=== PATIENT | female | born 1950 | race American Indian/Alaskan Native ===

== ENCOUNTER 2020-11-01 22:26 | Emergency (ER) | payer MEDICAID ==
[2020-11-01 22:56] VITALS: BP 166/84
--- NOTE | 2020-11-02 00:20 | XRay Report ---
LEFT HIP 2 VIEWS 2331 INDICATION: fall injury - pain COMPARISON: None available. FINDINGS: No fractures or dislocation are seen. Minimal bilateral hip degenerative changes are noted. Signer Name: Balaji Phillips MD Signed: 11/02/2020 12:15 AM Workstation Name: [id number]
--- NOTE | 2020-11-02 00:40 | Cat Scan Report ---
CT HEAD WITHOUT CONTRAST INDICATION: fall injury - pain TECHNIQUE: All CT scans at this location are performed using CT dose reduction for ALARA by means of automated exposure control. COMPARISON: None available. FINDINGS: BRAIN: No hemorrhage or mass effect are seen. No evidence of acute infarction is noted. Mild white ma tter microvascular type changes are seen. ORBITS: See below SOFT TISSUES OF HEAD: Normal. CALVARIUM: Normal. VISUALIZED PARANASAL SINUSES AND MASTOID AIR CELLS: See below ADDITIONAL FINDINGS: None. CT FACE HISTORY: fall injury - pain COMPARISON: None. TECHNIQUE: Axial images of the face were obtained. Coronal reformats were generated. All CT scans at this location are performed using CT dose reduction for ALARA by means of automated exposure control . CONTRAST: None. FINDINGS: Facial soft tissues: No significant abnormalities. 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 There appear to be sclerotic borders. H owever, just anterior to this and the zygomatic arch an acute fracture line is seen with slight infer ior depression of the more posterior portion and slight depression of the arch as a whole. The latera l wall of the left maxillary sinus shows a moderately depressed fracture. Depression by approximately 5 mm is seen. Paranasal sinuses: Density/thickening is seen inferiorly and posteriorly in the left maxillary sinus without an air-fluid level. Other sinuses appear clear. Orbits: No significant abnormality. Visualized images of the intracranial space: No significant abnormality. Additional findings: None. CT CERVICAL SPINE WITHOUT CONTRAST INDICATION: fall injury - pain TECHNIQUE: All CT scans at this location are performed using CT dose reduction for ALARA by means of automated exposure control. Axial CT images were obtained through the cervical spine. Sagittal and co winter reformatted images were produced. COMPARISON: None available. Cervical spine findings: Moderate degenerative changes are seen. Moderate disc space narrowing is not ed at C5-C6 with mild narrowing at C3-4 and C4-5. Slight retrolisthesis is noted at C5-6 related to t he degenerative change. No fractures are noted. Disc bulging is seen at C5-6 and C6-7. C1 to moderate arthritic changes are seen. A sclerotic area is noted in the right aspect of the C4 vertebral body e xtending slightly into the right pedicle. No other similar sclerotic foci are seen. No fractures are noted. Additional findings: A 6 cm mixed density mass of the left lobe of the thyroid is seen with slight mix bsternal extension. Right lobe shows a 2.3 cm mass. Scarring is seen in the right apex. IMPRESSION: 1. No significant acute intracranial abnormality is seen 2. Acute fractures of the left zygomatic arch and lateral wall of the left maxillary sinus 3. No acute abnormalities are seen in the cervical spine 4. Moderate cervical degenerative changes 5. Small sclerotic indeterminate focus in the C4 vertebral body. Follow-up is suggested. 6. Prominent thyroid abnormalities as above. Follow-up in a nonurgent setting with ultrasound and cli nical evaluation is suggested if these are not known findings. INCIDENTAL THYROID NODULE RECOMMENDATIONS Nonpalpable nodules detected on US or other anatomic imaging studies are termed incidentally discover ed nodules or incidentalomas. Nonpalpable nodules have the same risk of malignancy as palpable nodule s with the same size. Generally, only nodules >1 cm should be evaluated, since they have a greater po tential to be clinically significant cancers. (JESSICA, 2009). Follow up for incidental thyroid nodules <1 cm is not recommended. In patients <35 years with an incidental thyroid nodule detected on CT, MRI, or extrathyroidal ultras ound, dedicated thyroid ultrasound is recommended if the nodule is 1 cm, has no suspicious imaging fe atures, and if the patient has normal life expectancy. In patients 35 years with an incidental thyroid nodule detected on CT, MRI, or extrathyroidal ultraso und, dedicated thyroid ultrasound is recommended if the nodule is 1.5 cm, has no suspicious imaging f eatures, and if the patient has normal life expectancy. Signer Name: Balaji Phillips MD Signed: 11/02/2020 12:35 AM Workstation Name: [id number]
--- NOTE | 2020-11-02 01:20 | Emergency Department Report ---
ED Fall HPI - General Chief Complaint: Fall Stated Complaint: FALL; NOSE BLEED Source: patient Mode of arrival: Ambulatory - History of Present Illness Initial Comments: Patient is a 70-year-old -[place] female with a history of hypertension and ubo-ngpayyq-fijggeicc diabetes who presents to the ED with complaint of acute onset persistent headache, left zygomatic pain and swelling, nosebleed, n dipti pain and left hip pain after she tripped on her porch and fell down, landing on her face with brief loss of consciousness. Patient states that when she got up she realized that she had nosebleed which has since resolved. Patient states that she initially did not want to come to the ED for evaluation but at the insistence of her family she decided to come to the ED for evaluation because of worsening left zygomatic pain. Patient denies dizziness, syncope, seizures, chest pain, shortness of breath, back pain, numbness and tingling or weakness of upper and lower extremities bilaterally, change in vision, dental injuries, nausea and vomiting or abdominal pain. MD Complaint: fall, other (Facial pain, neck pain and head injury; left hip pain) -: Sudden, hour(s) (6) Fall From: standing, other (Slipped and fell off pouch) When Fall Occurred: 4-6 hours [employer] Fall Witnessed: yes, by family Place Fall Occurred: home Loss of Consciousness: none Prolonged Down Time?: no Symptoms Prior to Fall: none Location: head, face, neck, pelvis (left hip) Location - Extremities: Left: Leg (left hip pain) Severity: severe Severity scale (0 -10): 7 Quality: sharp, aching Context: tripped/slipped Associated Symptoms: headache, neck pain. denies: numbness, weakness, chest paint, shortness of breath, abdominal pain, hematuria, unable to walk, lightheaded, vertigo, confusion, other - Related Data Previous Rx's Medication Instructions Recorded Last Taken Type Clindamycin [Clindamycin CAP] 300 mg PO Q8HR #60 capsule 11/02/20 Unknown Rx Ibuprofen [Motrin] 600 mg PO Q8H PRN #30 tablet 11/02/20 Unknown Rx Allergies Allergy/AdvReac Type Severity Reaction Status Date / Time codeine Allergy Unknown Verified 11/02/20 01:51 Penicillins Allergy Unknown Verified 11/02/20 01:51 ED Review of Systems ROS: Stated complaint: FALL; NOSE BLEED Other details as noted in HPI Constitutional: denies: chills, fever Eyes: denies: eye pain, eye discharge, vision change ENT: other (nasal bone and left zygomatic pain). denies: ear pain, throat pain Respiratory: denies: cough, shortness of breath, wheezing Cardiovascular: denies: chest pain, palpitations Endocrine: no symptoms reported Gastrointestinal: denies: abdominal pain, nausea, diarrhea Genitourinary: denies: urgency, dysuria, discharge Musculoskeletal: arthralgia (left hip pain), other (neck pain). denies: back pain, joint swelling Skin: denies: rash, lesions Neurological: denies: headache, weakness, paresthesias Psychiatric: denies: anxiety, depression Hematological/Lymphatic: denies: easy bleeding, easy bruising ED Past Medical Hx - Past Medical History Previous Medical History?: Yes Hx Hypertension: Yes Hx Diabetes: Yes (borderline) - Surgical History Past Surgical History?: Yes Additional Surgical History: hysterectomy - Medications Home Medications: Home Medications Medication Instructions Recorded Confirmed Last Taken Type Clindamycin [Clindamycin CAP] 300 mg PO Q8HR #60 capsule 11/02/20 Unknown Rx Ibuprofen [Motrin] 600 mg PO Q8H PRN #30 tablet 11/02/20 Unknown Rx ED Physical Exam - General Limitations: No Limitations General appearance: alert, in no apparent distress - Head Head exam: Present: other (Palpable left zygomatic and nasaoseptal tenderness) - Eye Eye exam: Present: normal appearance, PERRL, EOMI Pupils: Present: normal accommodation - ENT ENT exam: Present: mucous membranes moist, TM's normal bilaterally, normal external ear exam, other (Palpable nasaoseptal and zygomatic tenderness) - Neck Neck exam: Present: normal inspection, tenderness (Palpable cervical paraspinal musculoskeletal tenderness), full ROM - Respiratory Respiratory exam: Present: normal lung sounds bilaterally. Absent: respiratory distress, wheezes, rales, rhonchi, chest wall tenderness, accessory muscle use, decreased breath sounds, prolonged expiratory - Cardiovascular Cardiovascular Exam: Present: regular rate, normal rhythm, normal heart sounds. Absent: systolic murmur, diastolic murmur, rubs, gallop - GI/Abdominal GI/Abdominal exam: Present: soft, normal bowel sounds. Absent: distended, tenderness, guarding, hyperactive bowel sounds - Extremities Exam Extremities exam: Present: normal inspection, full ROM, tenderness (Palpable left hip tenderness), normal capillary refill - Back Exam Back exam: Present: normal inspection, full ROM. Absent: tenderness, CVA tenderness (R), CVA tenderness (L), muscle spasm, paraspinal tenderness - Neurological Exam Neurological exam: Present: alert, oriented X3, CN II-XII intact, normal gait, reflexes normal - Psychiatric Psychiatric exam: Present: normal affect, normal mood - Skin Skin exam: Present: warm, dry, intact, normal color. Absent: rash ED Course Vital Signs 11/01/20 11/02/20 22:52 02:01 Temperature 98.3 F Pulse Rate 84 Respiratory 18 16 Rate Blood Pressure 166/84 O2 Sat by Pulse 97 Oximetry - Reevaluation(s) Reevaluation #1: 11/02/20 03:28 I paged and discussed the patient's case with the plastic surgeon on-call at [facility] Dr. Ta who advised that the patient is stable to follow-up with the facial plastic surgery clinic in the next 2 to [address] Ta advised that the patient may call the clinic at [phone] to schedule a follow-up appointment with the clinic. ED Medical Decision Making - Radiology Data Radiology results: report reviewed, image reviewed [address] [address] XRay Report Signed Patient: ZEN JOHNSON MR#: [id number] : 1950 Acct:[id number] Age/Sex: 70 / F ADM Date: 11/01/20 Loc: ED Attending Dr: Ordering Physician: NANY FREEMAN Date of Service: 11/01/20 Procedure(s): XR hip 2-3V LT Accession Number(s): [id number] cc: NANY FREEMAN Fluoro Time In Minutes: LEFT HIP 2 VIEWS 2332 INDICATION: fall injury - pain COMPARISON: None available. FINDINGS: No fractures or dislocation are seen. Minimal bilateral hip degen erative changes are noted. Signer Name: Balaji Phillips MD Signed: 11/02/2020 12:15 AM Workstation Name: [id number] Transcribed By: REJI Dictated By: Balaji Phillips MD Electronically Authenticated By: Balaji Phillips MD Signed Date/Time: 11/02/2014 DD/ TD/TT: Print [facility] [address] [place] [address] Cat Scan Report Signed Patient: ZEN JOHNSON MR#: [id number] : 1950 Acct:[id number] Age/Sex: 70 / F ADM Date: 11/01/20 Loc: ED Attending Dr: Ordering Physician: NANY FREEMAN Date of Service: 11/01/20 Procedure(s): CT head/brain wo con Accession Number(s): [id number] cc: NANY FREEMAN CT HEAD WITHOUT CONTRAST INDICATION: fall injury - pain TECHNIQUE: All CT scans at this location are performed using CT dose reduction for ALARA by means of automated exposure control. COMPARISON: None available. FINDINGS: BRAIN: No hemorrhage or mass effect are seen. No evidence of acute infarction is noted. Mild white matter microvascular type changes are seen. ORBITS: See below SOFT TISSUES OF HEAD: Normal. CALVARIUM: Normal. VISUALIZED PARANASAL SINUSES AND MASTOID AIR CELLS: See below ADDITIONAL FINDINGS: None. CT FACE HISTORY: fall injury - pain COMPARISON: None. TECHNIQUE: Axial images of the face were obtained. Coronal reformats were generated. All CT scans at this location are performed using CT dose reduction for ALARA by means of automated exposure control. CONTRAST: None. FINDINGS: Facial soft tissues: No significant abnormalities. 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 There appear to be sclerotic borders. However, just anterior to this and the zygomatic arch an acute fracture line is seen with slight inferior depression of the more posterior portion and slight depression of the arch as a whole. The lateral wall of the left maxillary sinus shows a moderately depressed fracture. Depression by approximately 5 mm is seen. Paranasal sinuses: Density/thickening is seen inferiorly and posteriorly in the left maxillary sinus without an air-fluid level. Other sinuses appear clear. Orbits: No significant abnormality. Visualized images of the intracranial space: No significant abnormality. Additional findings: None. CT CERVICAL SPINE WITHOUT CONTRAST INDICATION: fall injury - pain TECHNIQUE: All CT scans at this location are performed using CT dose reduction for ALARA by means of automated exposure control. Axial CT images were obtained through the cervical spine. Sagittal and coronal reformatted images were produced. COMPARISON: None available. Cervical spine findings: Moderate degenerative changes are seen. Moderate disc space narrowing is noted at C5-C6 with mild narrowing at C3-4 and C4-5. Slight retrolisthesis is noted at C5-6 related to the degenerative change. No fractures are noted. Disc bulging is seen at C5-6 and C6-7. C1 to moderate arthritic changes are seen. A sclerotic area is noted in the right aspect of the C4 vertebral body extending slightly into the right pedicle. No other similar sclerotic foci are seen. No fractures are noted. Additional findings: A 6 cm mixed density mass of the left lobe of the thyroid is seen with slight substernal extension. Right lobe shows a 2.3 cm mass. Scarring is seen in the right apex. IMPRESSION: 1. No significant acute intracranial abnormality is seen 2. Acute fractures of the left zygomatic arch and lateral wall of the left maxillary sinus 3. No acute abnormalities are seen in the cervical spine 4. Moderate cervical degenerative changes 5. Small sclerotic indeterminate focus in the C4 vertebral body. Follow-up is suggested. 6. Prominent thyroid abnormalities as above. Follow-up in a nonurgent setting with ultrasound and clinical evaluation is suggested if these are not known findings. INCIDENTAL THYROID NODULE RECOMMENDATIONS Nonpalpable nodules detected on US or other anatomic imaging studies are termed incidentally discovered nodules or incidentalomas. Nonpalpable nodules have the same risk of malignancy as palpable nodules with the same size. Generally, only nodules >1 cm should be evaluated, since they have a greater potential to be clinically significant cancers. (JESSICA, 2009). Follow up for incidental thyroid nodules <1 cm is not recommended. In patients <35 years with an incidental thyroid nodule detected on CT, MRI, or extrathyroidal ultrasound, dedicated thyroid ultrasound is recommended if the nodule is 1 cm, has no suspicious imaging features, and if the patient has normal life expectancy. In patients 35 years with an incidental thyroid nodule detected on CT, MRI, or extrathyroidal ultrasound, dedicated thyroid ultrasound is recommended if the nodule is 1.5 cm, has no suspicious imaging features, and if the patient has normal life expectancy. Signer Name: Balaji Phillips MD Signed: 11/02/2020 12:35 AM Workstation Name: [id number] Transcribed By: REJI Dictated By: Balaji Phillips MD Electronically Authenticated By: Balaji Phillips MD Signed Date/Time: 11/02/2034 DD/ TD/TT: - Medical Decision Making This is a 70-year-old -[place] female with a history of hypertension and lbh-bjjkfxx-rzirepkpl diabetes who presents to the ED with complaint of acute onset persistent headache, left zygomatic pain and swelling, nosebleed, neck pain and left hip pain after she tripped on her porch and fell down, landing on her face with brief loss of consciousness. Patient states that when she got up she realized that she had nosebleed which has since resolved. Patient states that she initially did not want to come to the ED for evaluation but at the insistence of her family she decided to come to the ED for evaluation because of worsening left zygomatic pain. In the ED, patient is alert and oriented x3 and is not in distress. Patient was treated for pain in the ED. The head CT scan without contrast showed no acute intracranial abnormalities or hemorrhage. The C-spine CT scan without contrast showed no acute cervical disc or spine f ractures and subluxations. The left hip x-ray showed no acute fractures or subluxations of the left hip. The facial CT scan without contrast showed acute fractures of the left zygomatic arch and lateral wall of the left maxillary sinus. These findings were discussed with the ED attending physician Dr. Solis who advised that a consult be placed for [facility] facial trauma or maxillofacial surgeon on-call for further direction on the plan of care. I therefore paged [facility] and discussed the patient's case with the Plastic surgeon on-call at [facility] Dr. Ta who advised that the patient needs to follow-up with the Facial plastic surgery clinic in the next 2 to [address] Ta advised that the patient may call the clinic at [phone] to schedule a follow-up appointment with the clinic. Patient was therefore discharged home on pain medications and prophylactic antibiotics and advised to follow-up with the plastic surgery clinic at [facility] by calling the number provided to schedule a follow-up appointment. Patient was otherwise advised return to the ED immediately if symptoms get worse. - Differential Diagnosis Facial bone fracture; cervical sprain; scalp contusion; facial contusion Critical care attestation.: If time is entered above; I have spent that time in minutes in the direct care of this critically ill patient, excluding procedure time. ED Disposition Clinical Impression: Contusion of face, scalp and neck Qualifiers: Encounter type: initial encounter Qualified Code(s): S00.83XA - Contusion of other part of head, initial encounter Sprain of left hip Qualifiers: Encounter type: initial encounter Qualified Code(s): S73.102A - Unspecified sprain of left hip, initial encounter Multiple facial bone fractures Qualifiers: Encounter type: initial encounter Fracture type: closed Qualified Code(s): S02.92XA - Unspecified fracture of facial bones, initial encounter for closed fracture Disposition: DC-01 TO HOME OR SELFCARE Is pt being admited?: No Does the pt Need Aspirin: No Condition: Stable Instructions: Zygoma Fracture, Facial or Scalp Contusion, Facial or Scalp Contusion, Fult-wy-[id number], Contusion, Tpnb-ga-Ykpu, Neck Contusion, Swlb-yd-Gklc, Jaw Contusion, Ceut-wo-Gcvx Additional Instructions: All imaging reports showed no acute abnormalities except for facial CT scan without contrast that showed facial bone fractures specifically left lateral maxillary sinus and zygomatic arch. Therefore take medications as advised with food, drink plenty of fluids and follow-up with be [facility] plastic surgery clinic in the next 2 to 3 days for reevaluation. Contact the plastic surgery clinic at [phone] to schedule a follow-up appointment. Return to the ED immediately if symptoms get worse. Prescriptions: Clindamycin [Clindamycin CAP] 300 mg PO Q8HR #60 capsule Ibuprofen [Motrin] 600 mg PO Q8H PRN #30 tablet PRN Reason: Pain Referrals: [facility] [Outside] - 2-3 Days (CONTACT PLASTIC SURGERY CLINIC AT [phone]) Time of Disposition: 03:31 Print Language: CYMRO
[2020-11-02] MEDS ORDERED: ACETAMINOPHEN 325 MG TAB PO ONE (02:00)
== END 2020-11-02 03:55 | disposition home or self-care (01) ==
LOC: ED 22:26
DX: S02.92XA Unspecified fracture of facial bones, initial encounter for closed fracture (principal); S73.102A Unspecified sprain of left hip, initial encounter; S00.83XA Contusion of other part of head, initial encounter; I10 Essential (primary) hypertension; E11.9 Type 2 diabetes mellitus without complications; Z79.899 Other long term (current) drug therapy; Z88.6 Allergy status to analgesic agent; Z88.0 Allergy status to penicillin; Z90.710 Acquired absence of both cervix and uterus; W18.30XA Fall on same level, unspecified, initial encounter; Y93.89 Activity, other specified; Y92.098 Other place in other non-institutional residence as the place of occurrence of the external cause; Y99.8 Other external cause status
CPT/HCPCS: 70450; 70486; 72125